=== PATIENT | female | born 1940 | race Caucasian/White ===

== ENCOUNTER 2017-11-06 02:29 | Inpatient (IN) | payer MEDICARE, OTHER ==
[2017-11-06] MEDS: ONDANSETRON 4 MG INJ IV (03:30)
[2017-11-06 03:39] LABS: ADD MAN DIFF? NO
[2017-11-06 03:55] LABS: WHITE BLOOD COUNT 17.5 10^3/ul (4.8-10.8)
[2017-11-06 03:55] LABS: ABNORMAL IP MESSAGE 1; BASOPHILS % 0.2 % (0.0-2.0); HEMATOCRIT 36.6 % (37.0-47.0); HEMOGLOBIN 12.6 g/dl (12.0-16.0); LYMPHOCYTES # 0.5 10^3/ul (0.8-2.9); LYMPHOCYTES % 2.7 % (15.0-51.0); MEAN CORPUSCULAR HEMOGLOBIN 30.6 pg (29.0-33.0); MEAN CORPUSCULAR HGB CONC 34.4 g/dl (32.0-37.0); MEAN CORPUSCULAR VOLUME 88.8 fl (82.0-101.0); MEAN PLATELET VOLUME 11.4 fl (7.4-10.4); MONOCYTE # 0.3 10^3/ul (0.3-0.9); MONOCYTES % 1.9 % (0.0-11.0); NEUTROPHIL # 16.6 10^3/ul (1.6-7.5); NEUTROPHILS % 94.8 % (39.0-77.0); PLATELET COUNT 282 10^3/UL (140-415); RED BLOOD COUNT 4.12 10^6/ul (4.20-5.40); RED CELL DISTRIBUTION WIDTH 13.8 % (11.5-14.5)
[2017-11-06 04:00] LABS: POSITIVE DIFF @See below
[2017-11-06 04:04] LABS: ALANINE AMINOTRANSFERASE 809 IU/L (13-69); ALBUMIN 4.3 g/dl (3.3-4.9); ALBUMIN/GLOBULIN RATIO 1.19; ALKALINE PHOSPHATASE 357 IU/L (42-121); ANION GAP 16 (8-16); BILIRUBIN,INDIRECT 0.4 mg/dl (0-1.1); BILIRUBIN,TOTAL 1.3 mg/dl (0.2-1.3); BLOOD UREA NITROGEN 17 mg/dl (7-20); CALCIUM 9.6 mg/dl (8.4-10.2); CARBON DIOXIDE 24 mmol/L (21-31); CHLORIDE 104 mmol/L (97-110); CREATININE 0.65 mg/dl (0.44-1.00); GLUCOSE 239 mg/dl (70-220); LIPASE 154 U/L (23-300); POTASSIUM 3.9 mmol/L (3.5-5.1); SODIUM 140 mmol/L (135-144); TOTAL PROTEIN 7.9 g/dl (6.1-8.1)
[2017-11-06 04:19] LABS: ASPARTATE AMINO TRANSFERASE 1479 IU/L (15-46)
[2017-11-06] MEDS: PIPER-TAZO 3.375 GM IV (PMX) 100 ML IVPB (05:14)
[2017-11-06 05:18] LABS: URINE BLOOD (Dip) POC 1+ (NEGATIVE); URINE GLUCOSE (Dip) POC Negative (NEGATIVE); URINE KETONES (Dip) POC Negative (NEGATIVE); URINE LEUKOCYTE EST (Dip) POC Negative (NEGATIVE); URINE NITRITE (Dip) POC Positive (NEGATIVE); URINE TOTAL PROTEIN POC 3+ (NEGATIVE)
[2017-11-06 05:18] LABS: URINE PH (Dip) POC 5.5 (5.0-8.5)
[2017-11-06] MEDS ORDERED: GLUCOSE GEL 15 GRAM TUBE BUCCAL (07:00)
[2017-11-06] MEDS ORDERED: HYDROmorphONE 0.5 MG/0.5 ML SYG IV (07:00)
[2017-11-06] MEDS ORDERED: NACL 0.9% 3 ML SYG IV (07:00)
[2017-11-06] MEDS ORDERED: DEXTROSE 50% 50 ML SYRINGE IV ×2 (07:00)
[2017-11-06] MEDS ORDERED: DOCUSATE SODIUM 100 MG CAP PO (07:00)
[2017-11-06] MEDS ORDERED: GLUCOSE GEL 15 GRAM TUBE PO ×2 (07:00)
[2017-11-06] MEDS ORDERED: BISACODYL (EC) 5 MG TAB PO (07:00)
[2017-11-06] MEDS ORDERED: GLUCAGON 1 MG INJ IM (07:00)
[2017-11-06] MEDS: INSULIN ASPART [NOVOLOG] 3 ML PEN SC ×4 (08:30→20:41)
[2017-11-06] MEDS: SOD CHLORIDE 0.9% 1,000 ML IV ×2 (08:46→20:02)
[2017-11-06 09:08] LABS: HEMOGLOBIN A1C 6.5 % (0-5.9)
[2017-11-06 09:11] LABS: INR 1.04; PROTIME 13.7 Sec (11.9-14.9); PT RATIO 1.1
[2017-11-06 09:12] LABS: PARTIAL THROMBOPLASTIN TIME 24.4 Sec (25.0-35.0)
[2017-11-06 12:16] LABS: ALPHA FETOPROTEIN 2.99 IU/L (0.00-7.21)
[2017-11-06] MEDS: PIPER-TAZO 2.25 GM (PMX) 50 ML IVPB ×2 (13:06→22:15)
[2017-11-06 13:54] LABS: CARCINOEMBRYONIC ANTIGEN 3.4 ng/ml (0.0-5.0)
[2017-11-06 14:43] LABS: FREE THYROXINE INDEX (Calc) 4.66 ug/ml (0.65-3.89); T3 UPTAKE 37.9 % (23.5-40.5); T4 (THYROXINE) 12.3 ug/dl (5.5-11.0)
[2017-11-06 15:49] LABS: THYROID STIMULATING HORMONE 0.655 MIU/L (0.465-4.680)
[2017-11-06 17:10] LABS: HEPATITIS B SURFACE ANTIBODY NEGATIVE (NEGATIVE); HEPATITIS C VIRAL ANTIBODY NEGATIVE (NEGATIVE)
[2017-11-06] MEDS: ACETAMINOPHEN 325 MG TAB PO (20:36)
[2017-11-07] MEDS: ZOLPIDEM 5 MG TAB PO (00:55)
[2017-11-07] MEDS ORDERED: ACCU-CHEK XX (02:00)
[2017-11-07] MEDS: SOD CHLORIDE 0.9% 1,000 ML IV ×3 (03:51→18:36)
[2017-11-07] MEDS: PIPER-TAZO 2.25 GM (PMX) 50 ML IVPB ×3 (05:50→22:02)
[2017-11-07 06:27] LABS: ADD MAN DIFF? NO
[2017-11-07 06:32] LABS: WHITE BLOOD COUNT 9.1 10^3/ul (4.8-10.8)
[2017-11-07 06:32] LABS: BASOPHILS % 0.4 % (0.0-2.0); EOSINOPHILS # 0.4 10^3/ul (0.0-0.5); EOSINOPHILS % 4.8 % (0.0-7.0); HEMATOCRIT 32.1 % (37.0-47.0); HEMOGLOBIN 10.8 g/dl (12.0-16.0); LYMPHOCYTES # 1.3 10^3/ul (0.8-2.9); LYMPHOCYTES % 13.8 % (15.0-51.0); MEAN CORPUSCULAR HEMOGLOBIN 30.2 pg (29.0-33.0); MEAN CORPUSCULAR HGB CONC 33.6 g/dl (32.0-37.0); MEAN CORPUSCULAR VOLUME 89.7 fl (82.0-101.0); MONOCYTE # 0.6 10^3/ul (0.3-0.9); MONOCYTES % 6.6 % (0.0-11.0); NEUTROPHIL # 6.7 10^3/ul (1.6-7.5); NEUTROPHILS % 74.1 % (39.0-77.0); PLATELET COUNT 263 10^3/UL (140-415); RED BLOOD COUNT 3.58 10^6/ul (4.20-5.40); RED CELL DISTRIBUTION WIDTH 14.6 % (11.5-14.5)
[2017-11-07 06:48] LABS: ALANINE AMINOTRANSFERASE 557 IU/L (13-69); ALBUMIN 3.5 g/dl (3.3-4.9); ALBUMIN/GLOBULIN RATIO 1.12; ALKALINE PHOSPHATASE 240 IU/L (42-121); ANION GAP 15 (8-16); ASPARTATE AMINO TRANSFERASE 534 IU/L (15-46); BILIRUBIN,INDIRECT 0.4 mg/dl (0-1.1); BILIRUBIN,TOTAL 0.4 mg/dl (0.2-1.3); BLOOD UREA NITROGEN 11 mg/dl (7-20); CALCIUM 8.7 mg/dl (8.4-10.2); CARBON DIOXIDE 28 mmol/L (21-31); CHLORIDE 106 mmol/L (97-110); CREATININE 0.76 mg/dl (0.44-1.00); GLUCOSE 155 mg/dl (70-220); POTASSIUM 3.8 mmol/L (3.5-5.1); SODIUM 145 mmol/L (135-144); TOTAL PROTEIN 6.6 g/dl (6.1-8.1)
[2017-11-07 06:49] LABS: CHOL/HDL RATIO 2.1 RATIO; CHOLESTEROL 123 mg/dl (100-200); HDL CHOLESTEROL 58 mg/dl (33-92); LDL CHOLESTEROL,CALCULATED 44 mg/dl; MAGNESIUM 1.4 mg/dl (1.7-2.5); TRIGLYCERIDES 106 mg/dl (0-149)
[2017-11-07 06:49] LABS: PHOSPHORUS 3.7 mg/dl (2.5-4.9)
[2017-11-07] MEDS: INSULIN ASPART [NOVOLOG] 3 ML PEN SC ×5 (07:30→22:09)
[2017-11-07] MEDS: MAGNESIUM SULFATE 3 GM in DEXTROSE 5% 100 ML IVPB (13:30)
[2017-11-07] MEDS: ACETAMINOPHEN 325 MG TAB PO (21:55)
[2017-11-07] MEDS: INSULIN GLARGINE [LANtus] 3 ML PEN SC (22:00)
[2017-11-08 05:50] LABS: ADD MAN DIFF? NO
[2017-11-08] MEDS: PIPER-TAZO 2.25 GM (PMX) 50 ML IVPB ×3 (05:51→21:36)
[2017-11-08 05:58] LABS: WHITE BLOOD COUNT 9.6 10^3/ul (4.8-10.8)
[2017-11-08 05:58] LABS: BASOPHIL # 0.1 10^3/ul (0.0-0.1); BASOPHILS % 0.5 % (0.0-2.0); EOSINOPHILS # 0.5 10^3/ul (0.0-0.5); EOSINOPHILS % 5.5 % (0.0-7.0); HEMATOCRIT 34.3 % (37.0-47.0); HEMOGLOBIN 11.7 g/dl (12.0-16.0); LYMPHOCYTES # 1.6 10^3/ul (0.8-2.9); LYMPHOCYTES % 16.2 % (15.0-51.0); MEAN CORPUSCULAR HEMOGLOBIN 30.1 pg (29.0-33.0); MEAN CORPUSCULAR HGB CONC 34.1 g/dl (32.0-37.0); MEAN CORPUSCULAR VOLUME 88.2 fl (82.0-101.0); MEAN PLATELET VOLUME 10.6 fl (7.4-10.4); MONOCYTE # 1.1 10^3/ul (0.3-0.9); MONOCYTES % 11.3 % (0.0-11.0); NEUTROPHIL # 6.3 10^3/ul (1.6-7.5); NEUTROPHILS % 66.2 % (39.0-77.0); PLATELET COUNT 283 10^3/UL (140-415); RED BLOOD COUNT 3.89 10^6/ul (4.20-5.40); RED CELL DISTRIBUTION WIDTH 14.2 % (11.5-14.5)
[2017-11-08 06:20] LABS: PHOSPHORUS 3.8 mg/dl (2.5-4.9)
[2017-11-08 06:20] LABS: MAGNESIUM 1.8 mg/dl (1.7-2.5)
[2017-11-08 06:21] LABS: ALANINE AMINOTRANSFERASE 337 IU/L (13-69); ALBUMIN 3.6 g/dl (3.3-4.9); ALBUMIN/GLOBULIN RATIO 0.97; ALKALINE PHOSPHATASE 231 IU/L (42-121); ANION GAP 13 (8-16); ASPARTATE AMINO TRANSFERASE 133 IU/L (15-46); BILIRUBIN,INDIRECT 0.3 mg/dl (0-1.1); BILIRUBIN,TOTAL 0.3 mg/dl (0.2-1.3); BLOOD UREA NITROGEN 11 mg/dl (7-20); CARBON DIOXIDE 27 mmol/L (21-31); CHLORIDE 104 mmol/L (97-110); CREATININE 0.66 mg/dl (0.44-1.00); GLUCOSE 154 mg/dl (70-220); POTASSIUM 3.7 mmol/L (3.5-5.1); SODIUM 140 mmol/L (135-144); TOTAL PROTEIN 7.3 g/dl (6.1-8.1)
[2017-11-08] MEDS: INSULIN ASPART [NOVOLOG] 3 ML PEN SC ×7 (08:17→20:55)
[2017-11-08] MEDS: SOD CHLORIDE 0.9% 1,000 ML IV (10:55)
[2017-11-08] MEDS: ACETAMINOPHEN 325 MG TAB PO (10:55)
[2017-11-08 12:42] LABS: ANA SCREEN NEGATIVE (NEGATIVE)
[2017-11-08] MEDS ORDERED: hydrALAzine 20 MG INJ IV (20:00)
[2017-11-08] MEDS: INSULIN GLARGINE [LANtus] 3 ML PEN SC (20:54)
[2017-11-08] MEDS: hydrALAzine 20 MG INJ IV (21:05)
[2017-11-08] MEDS: ZOLPIDEM 5 MG TAB PO (21:35)
[2017-11-09] MEDS ORDERED: hydrALAzine 20 MG INJ IV
[2017-11-09] MEDS: PIPER-TAZO 2.25 GM (PMX) 50 ML IVPB ×4 (05:39→22:00)
[2017-11-09 06:03] LABS: ADD MAN DIFF? NO
[2017-11-09 06:07] LABS: BASOPHIL # 0.1 10^3/ul (0.0-0.1); BASOPHILS % 0.5 % (0.0-2.0); EOSINOPHILS # 0.4 10^3/ul (0.0-0.5); EOSINOPHILS % 3.5 % (0.0-7.0); HEMATOCRIT 36.9 % (37.0-47.0); HEMOGLOBIN 12.7 g/dl (12.0-16.0); LYMPHOCYTES # 1.9 10^3/ul (0.8-2.9); LYMPHOCYTES % 18.1 % (15.0-51.0); MEAN CORPUSCULAR HEMOGLOBIN 30.3 pg (29.0-33.0); MEAN CORPUSCULAR HGB CONC 34.4 g/dl (32.0-37.0); MEAN CORPUSCULAR VOLUME 88.1 fl (82.0-101.0); MEAN PLATELET VOLUME 10.8 fl (7.4-10.4); MONOCYTE # 0.9 10^3/ul (0.3-0.9); MONOCYTES % 8.3 % (0.0-11.0); NEUTROPHIL # 7.2 10^3/ul (1.6-7.5); NEUTROPHILS % 69.4 % (39.0-77.0); PLATELET COUNT 328 10^3/UL (140-415); RED BLOOD COUNT 4.19 10^6/ul (4.20-5.40); RED CELL DISTRIBUTION WIDTH 14.2 % (11.5-14.5)
[2017-11-09 06:07] LABS: WHITE BLOOD COUNT 10.3 10^3/ul (4.8-10.8)
[2017-11-09 06:32] LABS: ANION GAP 16 (8-16); BLOOD UREA NITROGEN 17 mg/dl (7-20); CALCIUM 9.2 mg/dl (8.4-10.2); CARBON DIOXIDE 25 mmol/L (21-31); CHLORIDE 100 mmol/L (97-110); CREATININE 0.62 mg/dl (0.44-1.00); GLUCOSE 155 mg/dl (70-220); POTASSIUM 3.8 mmol/L (3.5-5.1); SODIUM 137 mmol/L (135-144)
[2017-11-09] MEDS: INSULIN ASPART [NOVOLOG] 3 ML PEN SC ×7 (07:30→20:32)
[2017-11-09] MEDS: ACETAMINOPHEN 325 MG TAB PO ×2 (12:08→21:27)
[2017-11-09 14:23] LABS: MITOCHONDRIAL TB NEGATIVE (NEGATIVE); SMOOTH MUSCLE AB SCREEN NEGATIVE (NEGATIVE)
[2017-11-09] MEDS: ONDANSETRON 4 MG INJ IV (20:27)
[2017-11-09] MEDS: INSULIN GLARGINE [LANtus] 3 ML PEN SC (20:32)
[2017-11-09] MEDS: ZOLPIDEM 5 MG TAB PO (21:27)
[2017-11-10] MEDS: PIPER-TAZO 2.25 GM (PMX) 50 ML IVPB ×3 (06:00→22:18)
[2017-11-10 07:16] LABS: ADD MAN DIFF? NO
[2017-11-10 07:20] LABS: WHITE BLOOD COUNT 8.7 10^3/ul (4.8-10.8)
[2017-11-10 07:20] LABS: BASOPHIL # 0.1 10^3/ul (0.0-0.1); BASOPHILS % 0.6 % (0.0-2.0); EOSINOPHILS # 0.5 10^3/ul (0.0-0.5); EOSINOPHILS % 5.7 % (0.0-7.0); HEMATOCRIT 35.7 % (37.0-47.0); HEMOGLOBIN 12.2 g/dl (12.0-16.0); MEAN CORPUSCULAR HEMOGLOBIN 30.4 pg (29.0-33.0); MEAN CORPUSCULAR HGB CONC 34.2 g/dl (32.0-37.0); MEAN PLATELET VOLUME 10.3 fl (7.4-10.4); MONOCYTE # 0.9 10^3/ul (0.3-0.9); MONOCYTES % 10.2 % (0.0-11.0); NEUTROPHIL # 5.2 10^3/ul (1.6-7.5); NEUTROPHILS % 60.2 % (39.0-77.0); PLATELET COUNT 328 10^3/UL (140-415); RED BLOOD COUNT 4.01 10^6/ul (4.20-5.40); RED CELL DISTRIBUTION WIDTH 13.9 % (11.5-14.5)
[2017-11-10 07:50] LABS: ANION GAP 15 (8-16); BLOOD UREA NITROGEN 17 mg/dl (7-20); CALCIUM 9.3 mg/dl (8.4-10.2); CARBON DIOXIDE 25 mmol/L (21-31); CHLORIDE 102 mmol/L (97-110); GLUCOSE 133 mg/dl (70-220); POTASSIUM 4.2 mmol/L (3.5-5.1); SODIUM 138 mmol/L (135-144)
[2017-11-10] MEDS: INSULIN ASPART [NOVOLOG] 3 ML PEN SC ×7 (08:25→20:42)
[2017-11-10 10:29] LABS: CANCER ANTIGEN 19-9 69.2 U/ml (0.0-37.0)
[2017-11-10] MEDS: ACETAMINOPHEN 325 MG TAB PO ×2 (11:34→20:39)
[2017-11-10] MEDS: ONDANSETRON 4 MG INJ IV (16:53)
[2017-11-10] MEDS: ZOLPIDEM 5 MG TAB PO (20:39)
[2017-11-10] MEDS: INSULIN GLARGINE [LANtus] 3 ML PEN SC (20:41)
[2017-11-11] MEDS: ACETAMINOPHEN 325 MG TAB PO (02:38)
[2017-11-11] MEDS: PIPER-TAZO 2.25 GM (PMX) 50 ML IVPB (06:02)
[2017-11-11 06:07] LABS: ADD MAN DIFF? NO
[2017-11-11 06:39] LABS: WHITE BLOOD COUNT 9.3 10^3/ul (4.8-10.8)
[2017-11-11 06:39] LABS: BASOPHIL # 0.1 10^3/ul (0.0-0.1); BASOPHILS % 0.8 % (0.0-2.0); EOSINOPHILS # 0.5 10^3/ul (0.0-0.5); EOSINOPHILS % 5.7 % (0.0-7.0); HEMATOCRIT 34.7 % (37.0-47.0); HEMOGLOBIN 11.8 g/dl (12.0-16.0); LYMPHOCYTES # 2.3 10^3/ul (0.8-2.9); LYMPHOCYTES % 24.3 % (15.0-51.0); MEAN CORPUSCULAR HEMOGLOBIN 30.4 pg (29.0-33.0); MEAN CORPUSCULAR VOLUME 89.4 fl (82.0-101.0); MEAN PLATELET VOLUME 10.8 fl (7.4-10.4); NEUTROPHIL # 5.4 10^3/ul (1.6-7.5); NEUTROPHILS % 57.9 % (39.0-77.0); PLATELET COUNT 325 10^3/UL (140-415); RED BLOOD COUNT 3.88 10^6/ul (4.20-5.40); RED CELL DISTRIBUTION WIDTH 14.2 % (11.5-14.5)
[2017-11-11 06:47] LABS: ANION GAP 13 (8-16); BLOOD UREA NITROGEN 23 mg/dl (7-20); CALCIUM 9.9 mg/dl (8.4-10.2); CARBON DIOXIDE 27 mmol/L (21-31); CHLORIDE 101 mmol/L (97-110); CREATININE 0.83 mg/dl (0.44-1.00); GLUCOSE 140 mg/dl (70-220); POTASSIUM 4.2 mmol/L (3.5-5.1); SODIUM 137 mmol/L (135-144)
[2017-11-11] MEDS: INSULIN ASPART [NOVOLOG] 3 ML PEN SC ×2 (07:30→08:33)
== END 2017-11-11 09:40 | disposition home or self-care (01) | DRG 445 ==
LOC: E/R 02:29 → PP2 05:51
DX: K80.00 Calculus of gallbladder with acute cholecystitis without obstruction (principal); N39.0 Urinary tract infection, site not specified; E11.9 Type 2 diabetes mellitus without complications; K11.7 Disturbances of salivary secretion; F41.9 Anxiety disorder, unspecified; K12.1 Other forms of stomatitis
CPT/HCPCS: 36415; 70486; 71045; 74176; 74181; 76705; 80048; 80053; 80061; 81003; 82105; 82378; 82962; 83036; 83690; 83735; 84100; 84436; 84443; 84479; 85025; 85610; 85730; 86038; 86255; 86301; 86706; 86709; 86803; 87086; 96372; 96374; 96375; 99285-25

== ENCOUNTER 2019-02-18 08:16 | Emergency (ER) | payer MEDICARE, OTHER ==
[2019-02-18] MEDS: SOD CHLORIDE 0.9% 1,000 ML IV (08:53)
[2019-02-18] MEDS: morphine 2 MG INJ IV (08:53)
[2019-02-18 09:16] LABS: ADD MAN DIFF? NO
[2019-02-18 09:18] LABS: WHITE BLOOD COUNT 6.9 10^3/ul (4.8-10.8)
[2019-02-18 09:18] LABS: BASOPHIL # 0.1 10^3/ul (0.0-0.1); BASOPHILS % 0.9 % (0.0-2.0); EOSINOPHILS # 0.6 10^3/ul (0.0-0.5); EOSINOPHILS % 9.2 % (0.0-7.0); HEMATOCRIT 38.9 % (37.0-47.0); HEMOGLOBIN 12.8 g/dl (12.0-16.0); LYMPHOCYTES # 1.4 10^3/ul (0.8-2.9); LYMPHOCYTES % 20.6 % (15.0-51.0); MEAN CORPUSCULAR HEMOGLOBIN 30.8 pg (29.0-33.0); MEAN CORPUSCULAR HGB CONC 32.9 g/dl (32.0-37.0); MEAN CORPUSCULAR VOLUME 93.5 fl (82.0-101.0); MEAN PLATELET VOLUME 10.2 fl (7.4-10.4); MONOCYTE # 0.6 10^3/ul (0.3-0.9); NEUTROPHIL # 4.1 10^3/ul (1.6-7.5); NEUTROPHILS % 60.2 % (39.0-77.0); PLATELET COUNT 310 10^3/UL (140-415); RED BLOOD COUNT 4.16 10^6/ul (4.20-5.40); RED CELL DISTRIBUTION WIDTH 12.8 % (11.5-14.5)
[2019-02-18 09:34] LABS: ALANINE AMINOTRANSFERASE 19 IU/L (13-69); ALBUMIN 4.4 g/dl (3.3-4.9); ALBUMIN/GLOBULIN RATIO 1.15; ALKALINE PHOSPHATASE 97 IU/L (42-121); AMYLASE 102 U/L (11-123); ANION GAP 13 (5-13); ASPARTATE AMINO TRANSFERASE 31 IU/L (15-46); BILIRUBIN,INDIRECT 0.4 mg/dl (0-1.1); BILIRUBIN,TOTAL 0.4 mg/dl (0.2-1.3); BLOOD UREA NITROGEN 23 mg/dl (7-20); CALCIUM 9.4 mg/dl (8.4-10.2); CARBON DIOXIDE 24 mmol/L (21-31); CHLORIDE 101 mmol/L (97-110); CREATININE 0.76 mg/dl (0.44-1.00); GLUCOSE 138 mg/dl (70-220); LIPASE 139 U/L (23-300); POTASSIUM 4.6 mmol/L (3.5-5.1); SODIUM 138 mmol/L (135-144); TOTAL PROTEIN 8.2 g/dl (6.1-8.1)
[2019-02-18 09:45] LABS: TROPONIN-I < 0.012 ng/ml (0.000-0.120)
[2019-02-18] MEDS: SOD CHLORIDE 0.9% 100 ML (09:57)
[2019-02-18] MEDS: IOHEXOL 300MG/ML 150 ML BTL (09:58)
[2019-02-18] MEDS: ONDANSETRON 4 MG INJ IV (10:07)
[2019-02-18] MEDS: FAMOTIDINE 20 MG INJ IV (10:07)
[2019-02-18] MEDS: MECLIZINE 12.5 MG TAB PO (10:20)
[2019-02-18 10:22] LABS: INR 0.99; PROTIME 13.2 Sec (11.9-14.9)
[2019-02-18 10:23] LABS: PARTIAL THROMBOPLASTIN TIME 27.6 Sec (23.0-35.0)
== END 2019-02-18 11:41 | disposition home or self-care (01) ==
LOC: E/R 08:16
DX: K80.20 Calculus of gallbladder without cholecystitis without obstruction (principal); K57.30 Diverticulosis of large intestine without perforation or abscess without bleeding; E11.9 Type 2 diabetes mellitus without complications; Z79.84 Long term (current) use of oral hypoglycemic drugs
CPT/HCPCS: 71045; 74177; 80053; 82150; 83690; 84484; 85025; 85610; 85730; 86850; 86900; 86901; 93005; 96374; 96375; 99285-25

== ENCOUNTER 2019-02-23 21:46 | Emergency (ER) | payer MEDICARE, OTHER ==
[2019-02-23] MEDS ORDERED: DIPHENHYDRAMINE PO (23:00)
[2019-02-23] MEDS ORDERED: ACETAMINOPHEN PO (23:00)
[2019-02-24] MEDS: DIPHENHYDRAMINE PO (00:01)
[2019-02-24] MEDS: ACETAMINOPHEN PO (00:01)
== END 2019-02-24 01:15 | disposition home or self-care (01) ==
LOC: E/R 21:46
DX: F41.9 Anxiety disorder, unspecified (principal)
CPT/HCPCS: 99282

== ENCOUNTER 2019-05-22 07:47 | Emergency (ER) | payer MEDICARE, OTHER ==
[2019-05-22] MEDS: predniSONE 20 MG TAB PO (08:27)
== END 2019-05-22 10:27 | disposition home or self-care (01) ==
LOC: E/R 07:47
DX: B86 Scabies (principal); I10 Essential (primary) hypertension; E11.9 Type 2 diabetes mellitus without complications; Z79.84 Long term (current) use of oral hypoglycemic drugs
CPT/HCPCS: 99283